=== PATIENT | female | born 2000 | race Caucasian/White ===

== ENCOUNTER 2019-05-15 17:22 | Inpatient (IN) | payer OTHER ==
[~2019-05-15] VITALS: Ht 157.5 cm; Wt 74.1 kg
[2019-05-15] MEDS ORDERED: OLAN10TA3 PO (17:49)
[2019-05-15] MEDS ORDERED: LORazepam 2 MG/ML VIAL IM ONE (18:15)
[2019-05-15] MEDS ORDERED: DiphenhydrAMINE HCL 50 MG/ML VIAL IM ONE (18:15)
[2019-05-15] MEDS ORDERED: HALOPERIDOL LACTATE 5 MG/ML VIAL IM ONE (18:15)
[2019-05-15] MEDS ORDERED: SODIUM CHLORIDE 0.9% 1,000 ML IV ONE (18:30)
[2019-05-15 21:40] LABS: BASOPHILS % (AUTO) 0.4 % (0.0-2.0); EOSINOPHILS % (AUTO) 0.1 % (1.0-6.0); HEMATOCRIT 39.5 % (36-46); HEMOGLOBIN 12.9 g/dL (12.0-16.0); LYMPHOCYTES # (AUTO) 2.7 K/uL (1.0-4.8); MEAN CORPUSCULAR HEMOGLOBIN 28.8 pg (26.0-34.0); MEAN CORPUSCULAR HGB CONC 32.8 G/dL (31.0-37.0); MEAN CORPUSCULAR VOLUME 88 fL (80-100); MONOCYTES # (AUTO) 1.1 K/uL (0.1-1.0); MONOCYTES % (AUTO) 7.2 % (2.0-9.0); NEUTROPHILS # (AUTO) 11.2 K/uL (1.8-7.7); NEUTROPHILS % (AUTO) 74.3 % (40.0-70.0); PLATELET COUNT (AUTO) 330 K/uL (150-450); RED BLOOD CELL COUNT(AUTO) 4.49 MIL/uL (4.00-5.20)
[2019-05-15 21:55] LABS: ANION GAP 13 mmol/L (8-16); CALCIUM, TOTAL 9.5 mg/dL (8.8-10.5); CARBON DIOXIDE 23 mmol/L (22-29); CHLORIDE 105 mmol/L (98-107); CREATININE 0.78 mg/dL (0.60-1.30); GLOMERULAR FILTR. RATE CALC > 60 mL/min (>60); GLUCOSE,RANDOM 96 mg/dL (70-110); POTASSIUM 3.5 mmol/L (3.5-5.1); SODIUM SERUM 141 mmol/L (136-145); UREA NITROGEN, BLOOD 7 mg/dL (7-18)
[2019-05-15 21:57] LABS: ALBUMIN 3.8 g/dL (3.4-5.0)
[2019-05-15 22:01] LABS: SALICYLATE 1.1 mg/dL (2.8-20.0)
[2019-05-15 22:09] LABS: ALANINE AMINOTRANSFERASE 21 U/L (12-78); ALKALINE PHOSPHATASE 56 U/L (46-116); ASPARTATE AMINOTRANSFERASE 16 U/L (15-37); BILIRUBIN,TOTAL 0.3 mg/dL (0.1-1.0); TOTAL PROTEIN, SERUM 7.7 g/dL (6.4-8.2)
[2019-05-15 22:12] LABS: ACETAMINOPHEN < 2 mcg/mL (10-30)
[2019-05-15 23:22] LABS: LACTIC ACID 0.8 mmol/L (0.4-2.0)
[2019-05-15 23:43] LABS: HCG,QUANTITATIVE < 1 mIU/mL (0-6)
[2019-05-16 02:39] LABS: APPEARANCE,URINE CLOUDY (CLEAR); BILIRUBIN,URINE NEGATIVE (NEGATIVE); GLUCOSE, URINE (UA) NEGATIVE (NEGATIVE); KETONES,URINE TRACE mg/dL (NEGATIVE); LEUKOCYTE ESTERASE ,URINE SMALL (NEGATIVE); NITRATE,URINE NEGATIVE (NEGATIVE); OCCULT BLOOD,URINE NEGATIVE (NEGATIVE); PROTEIN,URINE POS 1+ (NEGATIVE); UROBILINOGEN,URINE 0.2 mg/dL (<=1.0)
[2019-05-16 02:43] LABS: AMPHET/METH SCREEN,URINE NEGATIVE (NEGATIVE); BARBITURATE SCREEN, URINE NEGATIVE (NEGATIVE); BENZODIAZEPINES SCREEN,URINE NEGATIVE (NEGATIVE); CANNABINOID SCREEN,URINE POSITIVE (NEGATIVE); COCAINE SCREEN,URINE NEGATIVE (NEGATIVE); METHADONE SCREEN, URINE NEGATIVE (NEGATIVE); OPIATE SCREEN,URINE NEGATIVE (NEGATIVE)
[2019-05-16 02:44] LABS: PHENCYCLIDINE SCREEN,URINE NEGATIVE (NEGATIVE)
[2019-05-16 02:52] LABS: BACTERIA,URINE Few /HPF (None Seen); RBC,URINE None Seen /HPF (0-2)
[2019-05-16 02:53] LABS: AMORPHOUS SEDIMENT,UR Few /LPF (None Seen); CALCIUM OXALATE CRYSTALS,UR Few /LPF (None Seen); SQUAMOUS EPITHELIAL CELL,UR Few /LPF (None Seen)
[2019-05-16] MEDS ORDERED: HALOPERIDOL LACTATE 5 MG/ML VIAL ONE (08:39)
[2019-05-16] MEDS ORDERED: LORazepam 2 MG/ML VIAL ONE (08:39)
[2019-05-16] MEDS ORDERED: DiphenhydrAMINE HCL 50 MG/ML VIAL ONE (08:39)
[2019-05-16] MEDS ORDERED: LORazepam 2 MG/ML VIAL IM ONE (08:45)
[2019-05-16] MEDS ORDERED: DiphenhydrAMINE HCL 50 MG/ML VIAL IM ONE (08:45)
[2019-05-16] MEDS ORDERED: HALOPERIDOL LACTATE 5 MG/ML VIAL IM ONE (08:45)
[2019-05-16] MEDS ORDERED: LORazepam 2 MG TABLET PO PRN (14:00)
[2019-05-16] MEDS ORDERED: HALOPERIDOL 5 MG TABLET PO PRN (14:00)
[2019-05-16] MEDS ORDERED: ZOLPIDEM TARTRATE 10 MG TABLET PO PRN (14:00)
[2019-05-17] MEDS ORDERED: INFLUENZA VIRUS VACCINE QVS 2019-20 (3YR+)/PF 60 MCG/0.5 ML SYRINGE IM ONE (00:30)
[2019-05-17] MEDS ORDERED: ALBUTEROL SULFATE HFA 90 MCG/PUFF 8 GM INHALER IH PRN (08:00)
[2019-05-17] MEDS ORDERED: GuaiFENesin/D-METHORPHAN [SUGAR-FREE] 200-20MG/10 ML SYRUP UDCUP PO PRN (08:00)
[2019-05-17] MEDS ORDERED: PETROLATUM,WHITE 28 GM JELLY TP PRN (08:00)
[2019-05-17] MEDS ORDERED: ACETAMINOPHEN 325 MG TABLET PO PRN (08:00)
[2019-05-17] MEDS ORDERED: MAG HYDROX/AL HYDROX/SIMETH ES 30 ML SUSPENSION UDCUP PO PRN (08:00)
[2019-05-17] MEDS ORDERED: MAGNESIUM HYDROXIDE SUSPENSION 30 ML UDCUP PO PRN (08:00)
[2019-05-17] MEDS ORDERED: ONDANSETRON HCL 4 MG TABLET PO PRN (08:00)
[2019-05-17] MEDS ORDERED: IBUPROFEN 400 MG TABLET PO PRN (08:00)
[2019-05-17] MEDS ORDERED: NICOTINE 14 MG/24 HOUR PATCH TD PRN (08:00)
[2019-05-17] MEDS ORDERED: CloNIDine HCL 0.1 MG TABLET PO PRN (08:00)
[2019-05-17] MEDS ORDERED: DOCUSATE SODIUM 100 MG CAPSULE PO PRN (08:00)
[2019-05-17] MEDS ORDERED: LOPERAMIDE HCL 2 MG CAPSULE PO PRN (08:00)
[2019-05-17 08:27] VITALS: BP 108/69
[2019-05-17 16:28] VITALS: BP 137/77
[2019-05-17] MEDS ORDERED: OLAN10TA3 PO (16:35)
[2019-05-17] MEDS ORDERED: LITH300CRT PO (16:36)
[2019-05-17] MEDS ORDERED: LITHIUM CARBONATE 300 MG CAPSULE PO SCH (17:00)
[2019-05-17] MEDS ORDERED: OLANZapine 10 MG TABLET PO SCH (17:00)
== END 2019-05-17 18:08 | disposition short-term general hospital (02) | DRG 885 ==
LOC: EMS 17:24 → B3A 05-16 14:35
PROVIDERS: ADMIT Psychiatry & Neurology Psychiatry; ATTEND Psychiatry & Neurology Psychiatry
DX: F29 Unspecified psychosis not due to a substance or known physiological condition (principal); F31.9 Bipolar disorder, unspecified; F12.90 Cannabis use, unspecified, uncomplicated; D72.829 Elevated white blood cell count, unspecified; R50.9 Fever, unspecified
CPT/HCPCS: 83605; 87040; 87081; 93005; G0480; G0481; J1200; J1630; J2060; J7030

== ENCOUNTER 2021-07-17 05:18 | Emergency (ER) | payer MEDICAID, OTHER ==
[~2021-07-17] VITALS: Ht 157.5 cm; Wt 72.7 kg
[~2021-07-17 05:18] MED LIST: LITH300CRT PO; OLAN10TA74 PO
[2021-07-17] MEDS ORDERED: LORazepam 2 MG/ML VIAL IM ONE (05:30)
[2021-07-17] MEDS ORDERED: DiphenhydrAMINE HCL 50 MG/ML VIAL IM ONE (05:30)
[2021-07-17] MEDS ORDERED: HALOPERIDOL LACTATE 5 MG/ML VIAL IM ONE (05:30)
[2021-07-17 07:38] LABS: BASOPHILS % (AUTO) 0.2 % (0.0-2.0); EOSINOPHILS % (AUTO) 0.5 % (1.0-6.0); HEMOGLOBIN 13.7 g/dL (12.0-16.0); LYMPHOCYTES # (AUTO) 1.2 K/uL (1.0-4.8); LYMPHOCYTES % (AUTO) 9.8 % (22.0-44.0); MEAN CORPUSCULAR HEMOGLOBIN 32.4 pg (26.0-34.0); MEAN CORPUSCULAR HGB CONC 34.2 G/dL (31.0-37.0); MEAN CORPUSCULAR VOLUME 95 fL (80-100); MONOCYTES # (AUTO) 1.1 K/uL (0.1-1.0); NEUTROPHILS # (AUTO) 9.9 K/uL (1.8-7.7); NEUTROPHILS % (AUTO) 80.5 % (40.0-70.0); PLATELET COUNT (AUTO) 286 K/uL (150-450); RED BLOOD CELL COUNT(AUTO) 4.22 MIL/uL (4.00-5.20); RED CELL DISTRIBUTION WIDTH 13.1 % (11.5-14.5)
[2021-07-17 07:47] LABS: ANION GAP 8 mmol/L (8-16); CARBON DIOXIDE 25 mmol/L (22-29); CHLORIDE 105 mmol/L (98-107); CREATININE 0.81 mg/dL (0.60-1.30); GLOMERULAR FILTR. RATE CALC > 60 mL/min (>60); GLUCOSE,RANDOM 85 mg/dL (70-110); POTASSIUM 3.7 mmol/L (3.5-5.1); SODIUM SERUM 138 mmol/L (136-145); UREA NITROGEN, BLOOD 7 mg/dL (7-18)
[2021-07-17 07:53] LABS: ALANINE AMINOTRANSFERASE 27 U/L (12-78); ALBUMIN 3.8 g/dL (3.4-5.0); ALKALINE PHOSPHATASE 60 U/L (46-116); ASPARTATE AMINOTRANSFERASE 32 U/L (15-37); TOTAL PROTEIN, SERUM 7.3 g/dL (6.4-8.2)
[2021-07-17] MEDS ORDERED: ZOLPIDEM TARTRATE 10 MG TABLET PO PRN (10:00)
[2021-07-17] MEDS ORDERED: LORazepam 2 MG TABLET PO PRN (10:00)
[2021-07-17] MEDS ORDERED: HALOPERIDOL 5 MG TABLET PO PRN (10:00)
[2021-07-17 10:45] LABS: COVID AG,FIA SOURCE NASAL SWAB
[2021-07-17 12:55] VITALS: BP 112/72
[2021-07-17] MEDS ORDERED: LOPERAMIDE HCL 2 MG CAPSULE PO PRN (15:00)
[2021-07-17] MEDS ORDERED: ACETAMINOPHEN 325 MG TABLET PO PRN (15:00)
[2021-07-17] MEDS ORDERED: IBUPROFEN 600 MG TABLET PO PRN (15:00)
[2021-07-17] MEDS ORDERED: OMEPRAZOLE 20 MG CAPSULE PO PRN (15:00)
[2021-07-17] MEDS ORDERED: BACITRACIN 28 GM OINTMENT TP PRN (15:00)
[2021-07-17] MEDS ORDERED: MAG HYDROX/AL HYDROX/SIMETH ES 30 ML SUSPENSION UDCUP PO PRN (15:00)
[2021-07-17] MEDS ORDERED: ONDANSETRON HCL 4 MG TABLET PO PRN (15:00)
[2021-07-17] MEDS ORDERED: CloNIDine HCL 0.1 MG TABLET PO PRN (15:00)
[2021-07-17] MEDS ORDERED: ALBUTEROL SULFATE HFA 90 MCG/PUFF 8 GM INHALER IH PRN (15:00)
[2021-07-17] MEDS ORDERED: PETROLATUM,WHITE 28 GM JELLY TP PRN (15:00)
[2021-07-17] MEDS ORDERED: BENZOCAINE/MENTHOL LOZENGE PO PRN (15:00)
[2021-07-17] MEDS ORDERED: DOCUSATE SODIUM 100 MG CAPSULE PO PRN (15:00)
[2021-07-17] MEDS ORDERED: MAGNESIUM HYDROXIDE SUSPENSION 30 ML UDCUP PO PRN (15:00)
== END 2021-07-17 12:56 | disposition home or self-care (01) ==
LOC: EDUNIT# 05:18 → EMS 05:18 → UNDOADMIN 11:50 → B3A 11:50 → EMS 12:56 → UNDODISIN 22:16
DX: F31.9 Bipolar disorder, unspecified (principal); Z20.822 Contact with and (suspected) exposure to COVID-19
CPT/HCPCS: 36415; 80053; 84703; 85025; 87426; 96372; 99285; G0480; J1200; J1630; J2060